=== PATIENT | male | born 1985 | race Hispanic/Latino ===

== ENCOUNTER 2018-04-08 21:01 | Emergency (ER) | payer OTHER ==
--- NOTE | 2018-04-08 22:12 | RAD REPORT ---
EXAM DESCRIPTION: CT - Head Brain Wo Cont - 04/08/2018 10:00 pm CLINICAL HISTORY: HEADACHE COMPARISON: None TECHNIQUE: All CT scans are performed using dose optimization technique as appropriate and may inclu de automated exposure control or mA/KV adjustment according to patient size. FINDINGS: No intracranial hemorrhage, hydrocephalus or extra-axial fluid collection.No areas of brai n edema or evidence of midline shift. The paranasal sinuses and mastoids are clear. The calvarium is intact. IMPRESSION: No acute intracranial abnormality.
[2018-04-08] MEDS ORDERED: METOCLOPRAMIDE 10 MG/2mL INJ ONE (22:26)
[2018-04-08] MEDS ORDERED: DEXAMETHASONE 10 MG/ML VIAL ONE (22:26)
[2018-04-08] MEDS ORDERED: NA CHLORIDE 0.9% 1,000 ML ONE (22:26)
--- NOTE | 2018-04-08 23:00 | EDPHYS ---
Physician Documentation [facility] Name: Cuco Swan Age: 32 yrs Sex: Male : 1985 Arrival Date: 04/08/2018 Time: 21:06 Bed 27 Private MD: None, None ED Physician Raf Musa HPI: 04/08 22:53 This 32 yrs old Male presents to ER via Ambulatory with complaints of rn Headache, Numbness of tongue. 22:53 The patient complains of pain to the top of head and forehead. The patient describes rn the headache as aching. Onset: The symptoms/episode began/occurred 2 week(s) ago. Severity of symptoms: At its worst the pain was mild, in the emergency department the pain is unchanged. The symptoms are alleviated by nothing. the symptoms are aggravated by nothing. The patient has not experienced similar symptoms in the past. Denies prior headache, no famhx of aneurysm/early stroke/brain tumor, no vomiting, no weight loss, no trauma, + frontal headache that goes to back of heading, aching, no neck pain/stiffness, no fever. . Historical: - Allergies: 21:41 No Known Allergies; aj1 - Home Meds: 21:41 None [Active]; aj1 - PMHx: 21:41 None; aj1 - PSHx: 21:41 hand surgery; Appendectomy; aj1 - Immunization history:: Flu vaccine is not up to date. - Social history:: Smoking status: Patient uses tobacco products, denies chronic smoking, but will smoke occasionally. - Ebola Screening: : Patient denies travel to an Ebola-affected area in the 21 days before illness onset. - Family history:: not pertinent. - Hospitalizations: : No recent hospitalization is reported. ROS: 22:53 Constitutional: Negative for fever, chills, and weight loss, Eyes: Negative for injury, rn pain, redness, and discharge, Cardiovascular: Negative for chest pain, palpitations, and edema, Respiratory: Negative for shortness of breath, cough, wheezing, and pleuritic chest pain, Abdomen/GI: Negative for abdominal pain, nausea, vomiting, diarrhea, and constipation, MS/Extremity: Negative for injury and deformity, Skin: Negative for injury, rash, and discoloration, Neuro: Negative for weakness, and seizure. Exam: 22:53 Constitutional: This is a well developed, well nourished patient who is awake, alert, rn and in no acute distress. Head/Face: Normocephalic, atraumatic. Eyes: Pupils equal round and reactive to light, extra-ocular motions intact. Lids and lashes normal. Conjunctiva and sclera are non-icteric and not injected. Cornea within normal limits. Periorbital areas with no swelling, redness, or edema. Neck: Trachea midline, no thyromegaly or masses palpated, and no cervical lymphadenopathy. Supple, full range of motion without nuchal rigidity, or vertebral point tenderness. No Meningismus. Cardiovascular: Regular rate and rhythm with a normal S1 and S2. No gallops, murmurs, or rubs. Normal PMI, no JVD. No pulse deficits. Respiratory: Lungs have equal breath sounds bilaterally, clear to auscultation and percussion. No rales, rhonchi or wheezes noted. No increased work of breathing, no retractions or nasal flaring. MS/ Extremity: Pulses equal, no cyanosis. Neurovascular intact. Full, normal range of motion. Equal circumference. Neuro: Awake and alert, GCS 15, oriented to person, place, time, and situation. Cranial nerves II-XII grossly intact. Motor strength 5/5 in all extremities. Sensory grossly intact. Cerebellar exam normal. Normal gait. Vital Signs: 21:41 BP 158 / 66; Pulse 64; Resp 18; Temp 98.2; Pulse Ox 97% on R/A; Weight 90.72 kg (R); aj1 Height 5 ft. 6 in. (167.64 cm) (R); Pain 6/10; 22:35 BP 134 / 77; Pulse 58; Resp 16; Pulse Ox 98% on R/A; lp1 21:41 Body Mass Index 32.28 (90.72 kg, 167.64 cm) aj1 [place] Coma Score: 22:53 Eye Response: spontaneous(4). Verbal Response: oriented(5). Motor Response: obeys rn commands(6). Total: 15. MDM: 21:43 Patient medically screened. rn 22:53 Differential diagnosis: hypertensive headache, migraine, tension headache, vasomotor rn headache. Data reviewed: vital signs, nurses notes, radiologic studies, CT scan, and as a result, I will discharge patient. Counseling: I had a detailed discussion with the patient and/or guardian regarding: the historical points, exam findings, and any diagnostic results supporting the discharge/admit diagnosis, radiology results, the need for outpatient follow up, to return to the emergency department if symptoms worsen or persist or if there are any questions or concerns that arise at home. Response to treatment: the patient's symptoms have resolved after treatment, the patient's condition has returned to base line, the patient is now symptom free, and as a result, I will discharge patient. Special discussion: I discussed with the patient/guardian in detail that at this point there is no indication for admission to the hospital. It is understood, however, that if the symptoms persist or worsen the patient needs to return immediately for re-evaluation. ED course: Recommended blood pressure monitoring and diary for pcp as hypertension can cause this as well. . 04/08 21:51 Order name: CT Head Brain wo Cont; Complete Time: 22:15 rn 04/08 21:51 Order name: IV Start; Complete Time: 22:34 rn Administered Medications: 22:34 Drug: Reglan 10 mg Route: IVP; Site: right antecubital; lp1 23:08 Follow up: Response: No adverse reaction lp1 22:34 Drug: NS 0.9% 1000 ml Route: IV; Rate: 1000 ml; Site: right antecubital; lp1 23:08 Follow up: IV Status: IV converted to saline lock; IV Intake: 600ml lp1 22:34 Drug: Decadron - Dexamethasone 10 mg Route: IVP; Site: right antecubital; lp1 23:08 Follow up: Response: No adverse reaction lp1 Disposition: 04/08/18 23:00 Discharged to Home. Impression: Headache. - Condition is Stable. - Discharge Instructions: General Headache Without Cause, Hypertension. - Medication Reconciliation Form, Thank You Letter, Antibiotic Education, Prescription Opioid Use form. - Follow up: Jose Eduardo Dong MD; When: As needed; Reason: Recheck today's complaints, Re-evaluation by your physician. - Problem is new. - Symptoms have improved. Signatures: Dispatcher [employer] EDMS Sisi Hart RN RN aj1 Raf Musa MD MD rn Pena, Laura, RN RN lp1 Corrections: (The following items were deleted from the chart) 23:09 23:00 04/08/2018 23:00 Discharged to Home. Impression: Headache. Condition is Stable. lp1 Forms are Medication Reconciliation Form, Thank You Letter, Antibiotic Education, Prescription Opioid Use. Follow up: Jose Eduardo Dong; When: As needed; Reason: Recheck today's complaints, Re-evaluation by your physician. Problem is new. Symptoms have improved. rn
--- NOTE | 2018-04-08 23:00 | ER ---
Nurse's Notes [facility] Name: Cuco Swan Age: 32 yrs Sex: Male : 1985 Arrival Date: 04/08/2018 Time: 21:06 Bed 27 Private MD: None, None Diagnosis: Headache Presentation: 04/08 21:37 Presenting complaint: Patient states: He has had a headache for the past 2 weeks. It aj1 started out in his forehead, but now it radiates to the back of his head as well. Today he started to have tingling on his tongue. Speech is normal, patient's gait is steady, down filler are equal bilaterally, equal eyebrow raise. Transition of care: patient was not received from another setting of care. Onset of symptoms was March 2018. Risk Assessment: Do you want to hurt yourself or someone else? Patient reports no desire to harm self or others. Initial Sepsis Screen: Does the patient meet any 2 criteria? No. Patient's initial sepsis screen is negative. Does the patient have a suspected source of infection? No. Patient's initial sepsis screen is negative. Care prior to arrival: None. 21:37 Method Of Arrival: Ambulatory aj1 21:37 Acuity: MADELINE 3 aj1 Triage Assessment: 21:41 General: Appears in no apparent distress. comfortable, Behavior is calm, cooperative, aj1 appropriate for age. Pain: Complains of pain in forehead, left parietal area and right parietal area Pain currently is 6 out of 10 on a pain scale. Pain began 2 weeks ago. Neuro: Level of Consciousness is awake, alert, obeys commands, Truck Rental Clerk are equal bilaterally Moves all extremities. Full function Gait is steady, Speech is normal, Facial symmetry appears normal, Reports headache numbness. Cardiovascular: Patient's skin is warm and dry. Respiratory: Airway is patent Respiratory effort is even, unlabored, Respiratory pattern is regular, symmetrical. 22:35 Headache History: The patient has had previous headaches and this one is more severe lp1 than previous episodes. Pain: Also complains of sensitivity to sound. Historical: - Allergies: 21:41 No Known Allergies; aj1 - Home Meds: 21:41 None [Active]; aj1 - PMHx: 21:41 None; aj1 - PSHx: 21:41 hand surgery; Appendectomy; aj1 - Immunization history:: Flu vaccine is not up to date. - Social history:: Smoking status: Patient uses tobacco products, denies chronic smoking, but will smoke occasionally. - Ebola Screening: : Patient denies travel to an Ebola-affected area in the 21 days before illness onset. - Family history:: not pertinent. - Hospitalizations: : No recent hospitalization is reported. Screenin:46 Abuse screen: Denies threats or abuse. Nutritional screening: No deficits noted. bb Tuberculosis screening: No symptoms or risk factors identified. Fall Risk None identified. Assessment: :46 Reassessment: No changes from previously documented assessment. see triage assessment. bb 23:07 Reassessment: Patient is alert, oriented x 3, equal unlabored respirations, skin lp1 warm/dry/pink. Patient states feeling better. Patient states symptoms have improved. Vital Signs: 21:41 BP 158 / 66; Pulse 64; Resp 18; Temp 98.2; Pulse Ox 97% on R/A; Weight 90.72 kg (R); aj1 Height 5 ft. 6 in. (167.64 cm) (R); Pain 6/10; 22:35 BP 134 / 77; Pulse 58; Resp 16; Pulse Ox 98% on R/A; lp1 21:41 Body Mass Index 32.28 (90.72 kg, 167.64 cm) aj1 [place] Coma Score: 22:53 Eye Response: spontaneous(4). Verbal Response: oriented(5). Motor Response: obeys rn commands(6). Total: 15. ED Course: 21:06 Patient arrived in ED. mr 21:06 None, None is Private Physician. mr 21:40 Triage completed. aj1 21:41 Arm band placed on Patient placed in an exam room. aj1 21:43 Raf Musa MD is Attending Physician. rn 21:46 Patient has correct armband on for positive identification. Bed in low position. Call bb light in reach. Side rails up X 1. Pulse ox on. NIBP on. 21:47 Marie Paul, VALERIE is Primary Nurse. bb 21:57 CT completed. Patient tolerated procedure well. Patient moved to CT. Patient moved back mw3 from CT. 21:59 CT Head Brain wo Cont In Process Unspecified. EDMS 22:34 Inserted saline lock: 20 gauge in right antecubital area, using aseptic technique. lp1 22:59 Jose Eduardo Dong MD is Referral Physician. rn 23:07 No provider procedures requiring assistance completed. IV discontinued, No lp1 redness/swelling at site. Pressure dressing applied. Administered Medications: 22:34 Drug: Reglan 10 mg Route: IVP; Site: right antecubital; lp1 23:08 Follow up: Response: No adverse reaction lp1 22:34 Drug: NS 0.9% 1000 ml Route: IV; Rate: 1000 ml; Site: right antecubital; lp1 23:08 Follow up: IV Status: IV converted to saline lock; IV Intake: 600ml lp1 22:34 Drug: Decadron - Dexamethasone 10 mg Route: IVP; Site: right antecubital; lp1 23:08 Follow up: Response: No adverse reaction lp1 Intake: 23:08 IV: 600ml; Total: 600ml. lp1 Outcome: 23:00 Discharge ordered by MD. rn 23:07 Discharged to home ambulatory, with friend. lp1 23:07 Condition: good 23:07 Discharge instructions given to patient, Instructed on discharge instructions, follow up and referral plans. Demonstrated understanding of instructions, follow-up care. 23:09 Patient left the ED. lp1 Signatures: Dispatcher [employer] EDMS Sisi Hart RN RN Lyssa Valdivia mr Marie Palu RN RN bb Nieto, Roman, MD MD rn Pena, Laura, RN RN lp1 [place] mw3
== END 2018-04-08 23:09 | disposition home or self-care (01) ==
LOC: ER 21:01
DX: R51 Headache (principal); F17.210 Nicotine dependence, cigarettes, uncomplicated
CPT/HCPCS: 70450; 96361; 96374; 96375; 99284; J1100; J2765; J7030

== ENCOUNTER 2018-08-08 12:16 | Observation (INO) | payer OTHER ==
[2018-08-08 13:04] LABS: Absolute Lymphocytes (CBC) 1.7 K/uL (0.7-4.9); Absolute Monocytes 0.5 K/uL (0.1-1.3); Absolute Neutrophil 2.9 K/uL (1.8-8.0); Basophils % 0.7 % (0-1.3); Eosinophils % 1.8 % (0-4.4); Hematocrit 42.8 % (39.6-49.0); Lymphocytes % 32.3 % (15.3-44.8); MCH 31.7 pg (27.0-35.0); MCV 91.8 fL (80-100); MPV 9.8 fL (7.6-11.3); Monocytes % 9.4 % (3.3-12.3); RBC Red Blood Cell Count 4.66 M/uL (4.33-5.43)
--- NOTE | 2018-08-08 13:17 | RAD REPORT ---
EXAM DESCRIPTION: Danita Joy (2 Views)08/08/2018 1:03 pm CLINICAL HISTORY: Chest pain COMPARISON: none FINDINGS: The lungs appear clear of acute infiltrate. The heart is normal size IMPRESSION: No acute abnormalities displayed
[2018-08-08] MEDS ORDERED: KETOROLAC 30 MG/ML INJ ONE (13:21)
[2018-08-08 13:24] LABS: BUN Blood Urea Nitrogen 18 mg/dL (7-18); Bicarbonate 26 mmol/L (21-32); Glucose Level 98 mg/dL (74-106); Potassium 3.5 mmol/L (3.5-5.1); Sodium Level 141 mmol/L (136-145); Troponin (Emerg Dept Use Only) 0.06 ng/mL (0.0-0.045)
[2018-08-08 13:59] LABS: Barbiturates NEGATIVE (NEGATIVE); Benzodiazepines NEGATIVE (NEGATIVE); Cocaine NEGATIVE (NEGATIVE); METHAMPHETAM NEGATIVE (NEGATIVE); Methadone NEGATIVE (NEGATIVE); Opiates NEGATIVE (NEGATIVE); Phencyclidine NEGATIVE (NEGATIVE); THC Cannibis NEGATIVE (NEGATIVE)
[2018-08-08 14:16] LABS: Urine Blood NEGATIVE (NEG); Urine Glucose NEGATIVE (NEG); Urine Protein NEGATIVE (NEG)
[2018-08-08] MEDS ORDERED: ONDANSETRON 4 MG/2 ML VIAL IV PRN (16:10)
[2018-08-08] MEDS ORDERED: TRAMADOL HCL 50 MG TAB PO PRN (16:10)
[2018-08-08] MEDS ORDERED: HYDRALAZINE HCL 20 MG/ML VIAL IV PRN (16:10)
[2018-08-08] MEDS ORDERED: ACETAMINOPHEN 500 MG TAB PO PRN (16:10)
--- NOTE | 2018-08-08 16:13 | ER ---
Nurse's Notes [facility] Name: Cuco Swan Age: 32 yrs Sex: Male : 1985 Arrival Date: 08/08/2018 Time: 12:18 Bed 15 Private MD: Diagnosis: Precordial pain Presentation: 08/08 12:23 Presenting complaint: Patient states: left sided chest pain and pain with inhalation sv started about 2 weeks ago. Transition of care: patient was not received from another setting of care. Onset of symptoms was July 25, 2018. Care prior to arrival: None. 12:23 Method Of Arrival: Ambulatory sv 12:23 Acuity: MADELINE 3 sv 17:38 Risk Assessment: Do you want to hurt yourself or someone else? Patient reports no jl7 desire to harm self or others. Initial Sepsis Screen: Does the patient meet any 2 criteria? No. Patient's initial sepsis screen is negative. Does the patient have a suspected source of infection? No. Patient's initial sepsis screen is negative. Triage Assessment: 12:23 General: Appears in no apparent distress. uncomfortable, Behavior is calm, cooperative, sv appropriate for age. Pain: Complains of pain in anterior aspect of left upper chest and left breast Pain currently is 2 out of 10 on a pain scale. Pain began 2 weeks ago Alleviated by nothing. Aggravated by deep breathing. Neuro: Level of Consciousness is awake, alert, obeys commands, Oriented to person, place, time, situation, Moves all extremities. Full function Gait is steady, Speech is normal. Respiratory: Reports shortness of breath pain with respiration Respiratory effort is even, unlabored, Respiratory pattern is regular, symmetrical. Historical: - Allergies: 12:24 No Known Allergies; sv - Home Meds: 12:24 None [Active]; sv - PMHx: 17:08 None; jl7 - PSHx: 12:24 hand surgery; Appendectomy; sv - Immunization history:: Flu vaccine is not up to date. - Social history:: Smoking status: Patient uses tobacco products, denies chronic smoking, but will smoke occasionally. - Ebola Screening: : No symptoms or risks identified at this time. Screenin:45 Abuse screen: Denies threats or abuse. Denies injuries from another. Nutritional jl7 screening: No deficits noted. Tuberculosis screening: No symptoms or risk factors identified. Fall Risk IV access (20 points). Total [place] Fall Scale indicates No Risk (0-24 pts). Assessment: 13:00 General: Appears in no apparent distress. uncomfortable, Behavior is calm, cooperative, jl7 appropriate for age. Pain: Complains of pain in anterior aspect of left upper chest Pain does not radiate. Pain currently is 2 out of 10 on a pain scale. at worst was 9 out of 10 on a pain scale. Quality of pain is described as sharp, Pain began suddenly, Is intermittent, Aggravated by Exhaling. Neuro: Cardiovascular: Heart tones present Patient's skin is warm and dry. Respiratory: Airway is patent Respiratory effort is even, unlabored, Respiratory pattern is regular, symmetrical, Breath sounds are clear bilaterally. GI: No signs and/or symptoms were reported involving the gastrointestinal system. : No signs and/or symptoms were reported regarding the genitourinary system. EENT: No signs and/or symptoms were reported regarding the EENT system. Derm: Skin is pink, warm \T\ dry. 14:00 Reassessment: Patient appears in no apparent distress at this time. Patient and/or jl7 family updated on plan of care and expected duration. Pain level reassessed. Patient is alert, oriented x 3, equal unlabored respirations, skin warm/dry/pink. Patient states feeling better. 15:05 Reassessment: Patient appears in no apparent distress at this time. No changes from jl7 previously documented assessment. Patient and/or family updated on plan of care and expected duration. Pain level reassessed. Patient is alert, oriented x 3, equal unlabored respirations, skin warm/dry/pink. 16:00 Reassessment: Patient appears in no apparent distress at this time. Patient and/or jl7 family updated on plan of care and expected duration. Pain level reassessed. Patient is alert, oriented x 3, equal unlabored respirations, skin warm/dry/pink. Patient denies pain at this time. 17:00 Reassessment: Patient appears in no apparent distress at this time. No changes from jl7 previously documented assessment. Patient and/or family updated on plan of care and expected duration. Pain level reassessed. Patient is alert, oriented x 3, equal unlabored respirations, skin warm/dry/pink. Vital Signs: 12:24 BP 124 / 79; Pulse 66; Resp 18; Temp 97; Pulse Ox 99% ; Weight 90.72 kg; Height 5 ft. 6 sv in. (167.64 cm); Pain 2/10; 12:45 BP 118 / 79; Pulse 58; Resp 16 S; Pulse Ox 98% on R/A; Pain 2/10; jl7 13:30 BP 125 / 75; Pulse 59; Resp 16 S; Pulse Ox 99% on R/A; jl7 14:00 BP 114 / 76; Pulse 55; Resp 16 S; Pulse Ox 99% on R/A; jl7 15:06 BP 109 / 79; Pulse 53; Resp 16; Pulse Ox 99% on R/A; Pain 0/10; jl7 15:45 BP 113 / 67; Pulse 50; Resp 16 S; Pulse Ox 98% on R/A; jl7 16:30 BP 124 / 81; Pulse 60; Resp 16 S; Pulse Ox 99% on R/A; jl7 17:08 BP 126 / 86; Pulse 59; Resp 16 S; Pulse Ox 98% on R/A; jl7 12:24 Body Mass Index 32.28 (90.72 kg, 167.64 cm) sv ED Course: 12:18 Patient arrived in ED. tw3 12:24 Triage completed. sv 12:25 Arm band placed on. sv 12:30 Edwar Jalloh MD is Attending Physician. gs 12:32 Espinoza De León, VALERIE is Primary Nurse. jl7 12:45 Patient maintains SpO2 saturation greater than 95% on room air. jl7 12:53 Patient has correct armband on for positive identification. Placed in gown. Bed in low mh5 position. Call light in reach. Warm blanket given. vehicle monitor technician on. Pulse ox on. NIBP on. 12:53 Initial lab(s) drawn, by md, sent to lab. Inserted saline lock: 20 gauge forearm, using [facility] aseptic technique. Blood collected. 12:54 Troponin (emerg Dept Use Only) Sent. 5 12:54 Basic Metabolic Panel Sent. [facility] 12:54 CBC with Diff Sent. 5 12:55 Patient moved to radiology via wheelchair. jr1 13:03 X-ray completed. Patient tolerated procedure well. Patient moved back from radiology. jr1 13:05 XRAY Chest Pa And Lat (2 Views) In Process Unspecified. EDMS 15:05 Troponin (emerg Dept Use Only) Sent. [facility] 15:06 Urine Dipstick--Ancillary (enter results) Sent. [facility] 15:06 Repeat lab(s) drawn. sent to lab. [facility] 16:11 Dario Quintanilla DO is Hospitalizing Provider. 17:10 No provider procedures requiring assistance completed. Patient admitted, IV remains in jl7 place. intact, No redness/swelling at site. Administered Medications: 13:23 Drug: TORadol 30 mg Route: IVP; Site: right forearm; jl7 14:00 Follow up: Response: No adverse reaction; Pain is decreased jl Outcome: 16:12 Decision to Hospitalize by Provider. gs 17:39 Admitted to Tele accompanied by tech, via wheelchair, room 413, with chart, Report jl7 called to VALERIE Graham 17:39 Condition: stable 17:39 Discharge instructions given to patient, Instructed on the need for admit, Demonstrated understanding of instructions. 17:44 Patient left the ED. 7 Signatures: Dispatcher [employer] Maria Luz Hayes RN RN Hayley Frey 1 Lyssa Dey Espinoza Byrnes RN RN jl7 Carmine, Chloe 3 Edwar Jalloh MD MD Corrections: (The following items were deleted from the chart) 17:07 16:00 Reassessment: Patient appears in no apparent distress at this time. No changes jl7 from previously documented assessment. Patient and/or family updated on plan of care and expected duration. Pain level reassessed. Patient is alert, oriented x 3, equal unlabored respirations, skin warm/dry/pink. jl
--- NOTE | 2018-08-08 16:14 | EDPHYS ---
Physician Documentation [facility] Name: Cuco Swan Age: 32 yrs Sex: Male : 1985 Arrival Date: 08/08/2018 Time: 12:18 Bed 15 Private MD: ED Physician Edwar Jlaloh HPI: 08/08 16:45 This 32 yrs old Male presents to ER via Ambulatory with complaints of Chest gs Pain. 16:45 The patient or guardian reports chest pain that is located primarily in the substernal gs area. Associated signs and symptoms: Pertinent negatives: diaphoresis. The chest pain is described as a heaviness. Duration: The patient or guardian reports multiple episodes, that have now resolved. Severity of pain: At its worst the pain was moderate in the emergency department the pain has resolved. The patient has experienced similar episodes in the past, a few times. Historical: - Allergies: 12:24 No Known Allergies; sv - Home Meds: 12:24 None [Active]; sv - PMHx: 17:08 None; jl7 - PSHx: 12:24 hand surgery; Appendectomy; sv - Immunization history:: Flu vaccine is not up to date. - Social history:: Smoking status: Patient uses tobacco products, denies chronic smoking, but will smoke occasionally. - Ebola Screening: : No symptoms or risks identified at this time. ROS: 16:45 All other systems are negative. gs Exam: 16:45 Head/Face: Normocephalic, atraumatic. Eyes: Pupils equal round and reactive to light, gs extra-ocular motions intact. Lids and lashes normal. Conjunctiva and sclera are non-icteric and not injected. Cornea within normal limits. Periorbital areas with no swelling, redness, or edema. ENT: Nares patent. No nasal discharge, no septal abnormalities noted. Tympanic membranes are normal and external auditory canals are clear. Oropharynx with no redness, swelling, or masses, exudates, or evidence of obstruction, uvula midline. Mucous membranes moist. Neck: Trachea midline, no thyromegaly or masses palpated, and no cervical lymphadenopathy. Supple, full range of motion without nuchal rigidity, or vertebral point tenderness. No Meningismus. Chest/axilla: Normal chest wall appearance and motion. Nontender with no deformity. No lesions are appreciated. Cardiovascular: Regular rate and rhythm with a normal S1 and S2. No gallops, murmurs, or rubs. Normal PMI, no JVD. No pulse deficits. Respiratory: Lungs have equal breath sounds bilaterally, clear to auscultation and percussion. No rales, rhonchi or wheezes noted. No increased work of breathing, no retractions or nasal flaring. Abdomen/GI: Soft, non-tender, with normal bowel sounds. No distension or tympany. No guarding or rebound. No evidence of tenderness throughout. Back: No spinal tenderness. No costovertebral tenderness. Full range of motion. Skin: Warm, dry with normal turgor. Normal color with no rashes, no lesions, and no evidence of cellulitis. MS/ Extremity: Pulses equal, no cyanosis. Neurovascular intact. Full, normal range of motion. Neuro: Awake and alert, GCS 15, oriented to person, place, time, and situation. Cranial nerves II-XII grossly intact. Motor strength 5/5 in all extremities. Sensory grossly intact. Cerebellar exam normal. Normal gait. 16:45 Constitutional: The patient appears alert, awake. 16:45 ECG was reviewed by the Attending Physician. Vital Signs: 12:24 BP 124 / 79; Pulse 66; Resp 18; Temp 97; Pulse Ox 99% ; Weight 90.72 kg; Height 5 ft. 6 sv in. (167.64 cm); Pain 2/10; 12:45 BP 118 / 79; Pulse 58; Resp 16 S; Pulse Ox 98% on R/A; Pain 2/10; jl7 13:30 BP 125 / 75; Pulse 59; Resp 16 S; Pulse Ox 99% on R/A; jl7 14:00 BP 114 / 76; Pulse 55; Resp 16 S; Pulse Ox 99% on R/A; jl7 15:06 BP 109 / 79; Pulse 53; Resp 16; Pulse Ox 99% on R/A; Pain 0/10; jl7 15:45 BP 113 / 67; Pulse 50; Resp 16 S; Pulse Ox 98% on R/A; jl7 16:30 BP 124 / 81; Pulse 60; Resp 16 S; Pulse Ox 99% on R/A; jl7 17:08 BP 126 / 86; Pulse 59; Resp 16 S; Pulse Ox 98% on R/A; jl7 12:24 Body Mass Index 32.28 (90.72 kg, 167.64 cm) sv MDM: 12:37 Patient medically screened. 16:45 Differential diagnosis: acute myocardial infarction, chest wall pain, stable angina, gs unstable angina. Data reviewed: vital signs, nurses notes. Counseling: I had a detailed discussion with the patient and/or guardian regarding: the historical points, exam findings, and any diagnostic results supporting the discharge/admit diagnosis, the need for further work-up and treatment in the hospital. 08/08 12:38 Order name: Basic Metabolic Panel; Complete Time: 13:27 08/08 12:38 Order name: CBC with Diff; Complete Time: 13:22 08/08 12:38 Order name: Troponin (emerg Dept Use Only); Complete Time: 13:27 08/08 13:28 Order name: Urine Drug Screen; Complete Time: 14:19 08/08 13:28 Order name: CPK; Complete Time: 14:19 08/08 13:57 Order name: Urine Dipstick--Ancillary (enter results) 08/08 14:19 Order name: Troponin (emerg Dept Use Only); Complete Time: 15:52 08/08 16:17 Order name: T4 Free EDIL 08/08 16:17 Order name: Thyroid Stimulating Hormone EDIL 08/08 16:17 Order name: Urinalysis EDIL 08/08 16:17 Order name: Basic Metabolic Panel EDIL 08/08 16:17 Order name: Basic Metabolic Panel EDIL 08/08 16:17 Order name: CBC with Automated Diff EDIL 08/08 16:18 Order name: CBC with Automated Diff EDIL 08/08 12:38 Order name: XRAY Chest Pa And Lat (2 Views); Complete Time: 13:22 08/08 16:17 Order name: Echo with Doppler EDIL 08/08 16:18 Order name: CKMB Creatine Kinase MB EDIL 08/08 16:18 Order name: CKMB Creatine Kinase MB EDMS 08/08 16:18 Order name: CKMB Creatine Kinase MB EDMS 08/08 16:18 Order name: Creatine Phosphokinase EDIL 08/08 16:18 Order name: Creatine Phosphokinase EDIL 08/08 16:18 Order name: Creatine Phosphokinase EDIL 08/08 16:18 Order name: Lipid Profile EDIL 08/08 16:18 Order name: Lipid Profile EDIL 08/08 16:18 Order name: Magnesium EDIL 08/08 16:18 Order name: Magnesium EDIL 08/08 16:18 Order name: Troponin I EDIL 08/08 16:18 Order name: Troponin I EDIL 08/08 16:18 Order name: Troponin I EDIL 08/08 12:29 Order name: EKG; Complete Time: 12:30 sv 08/08 12:29 Order name: EKG - Nurse/Tech; Complete Time: 13:10 sv 08/08 12:38 Order name: Cardiac monitoring; Complete Time: 12:54 gs 08/08 12:38 Order name: IV Saline Lock; Complete Time: 12:54 gs 08/08 12:38 Order name: Labs collected and sent; Complete Time: 12:54 gs 08/08 12:38 Order name: O2 Per Protocol; Complete Time: 13:10 gs 08/08 12:38 Order name: O2 Sat Monitoring; Complete Time: 13:10 gs 08/08 16:17 Order name: CONS Physician Consult EDIL 08/08 16:17 Order name: Heart Healthy EDIL 08/08 16:17 Order name: NPO EDIL EC:45 Rate is 57 beats/min. Rhythm is regular. GA interval is normal. QRS interval is gs prolonged. T waves are Normal. No ST changes noted. Clinical impression: Abnormal EKG without significant change. Interpreted by me. Administered Medications: 13:23 Drug: TORadol 30 mg Route: IVP; Site: right forearm; jl7 14:00 Follow up: Response: No adverse reaction; Pain is decreased jl7 Disposition: 08/08/18 16:12 Hospitalization ordered by Dario Quintanilla for Observation. Preliminary diagnosis is Precordial pain. - Bed requested for Telemetry/MedSurg (observation). - Status is Observation. jl7 - Condition is Stable. - Problem is new. - Symptoms have improved. UTI on Admission? No Signatures: Dispatcher [employer] [facility] Maria Luz Macdonald, RN RN Espinoza Felipe RN RN jl7 Edwar Jalloh MD MD gs Botello, Elizabeth eb Corrections: (The following items were deleted from the chart) 16:53 16:12 Hospitalization Ordered by Dario Quintanilla DO for Observation. Preliminary eb diagnosis is Precordial pain. Bed requested for Telemetry/MedSurg (observation). Status is Observation. Condition is Stable. Problem is new. Symptoms have improved. UTI on Admission? No. gs 17:44 16:53 08/08/2018 16:12 Hospitalization Ordered by Dario Quintanilla DO for Observation. jl7 Preliminary diagnosis is Precordial pain. Bed requested for Telemetry/MedSurg (observation). Status is Observation. Condition is Stable. Problem is new. Symptoms have improved. UTI on Admission? No. eb
[2018-08-08] MEDS ORDERED: NITROGLYCERIN 0.4 MG/TAB SL PRN (16:20)
--- NOTE | 2018-08-08 16:21 | P.HP ---
Certification for Inpatient Patient admitted to: Observation With expected LOS: <2 Midnights Patient will require the following post-hospital care: None Practitioner: I am a practitioner with admitting privileges, knowledge of patient current condition, hospital course, and medical plan of care. Services: Services provided to patient in accordance with Admission requirements found in Title 42 Section 412.3 of the Code of Federal Regulations Patient History Date of Service: 08/08/18 Primary Care Provider: None Reason for admission: Chest pain History of Present Illness: 32 yo HM presented to the ER with chest pain. He has no prior medical issues except that he smokes tobacco and drinks alcohol. He reports chest pain for the past 2 weeks. It would come and go. It is a random type of pain. It is mainly to the substernal region. No nausea, vomiting, palpitations, headaches or dizziness. He tried to make an appt with a local physician but he was not successful. He came to the ER for further evaluation. In the ER he was found to have mild elevation to the Troponin of 0.06. Repeat was 0.05. Otherwise lab was unremarkable. EKG showed RBBB. Chest x-ray was unremarkable. UDS negative. Vitals stable. He was admitted for further evaluation. When I saw the patient he was stable without any pain. Allergies No Known Allergies Allergy (Unverified 04/08/18 23:12) Home medications list reviewed: Yes - Past Medical/Surgical History Diabetic: No -: Alcohol use -: Tobacco abuse -: Right hand surgery -: Appendectomy Psychosocial/ Personal History: He is single, He has no children. 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 - Family History Father -: Diabetes - Social History Smoking Status: Light Tobacco smoker (1-9 cigarettes/day) Counseled patient to stop smoking for: less than 10 minutes Smoking therapy provided: Yes Patient receptive to therapy: Yes Alcohol use: Yes CD- Drugs: No Caffeine use: Yes Place of Residence: Home Review of Systems General: As per HPI Eyes: Unremarkable ENT: Unremarkable Respiratory: Unremarkable Cardiovascular: Chest Pain, As per HPI Gastrointestinal: Unremarkable Genitourinary: Unremarkable Musculoskeletal: Unremarkable Integumentary: Unremarkable Neurological: Unremarkable Lymphatics: Unremarkable Physical Examination - Physical Exam General: Alert, In no apparent distress, Oriented x3, Cooperative HEENT: Atraumatic, Normocephalic, PERRLA, Mucous membr. moist/pink Neck: Supple, No Thyromegaly Respiratory: Clear to auscultation bilaterally, Normal air movement Cardiovascular: Normal pulses, Regular rate/rhythm Gastrointestinal: Normal bowel sounds, Soft and benign, Non-distended, No ascites, No tenderness, No masses, No rebound, No guarding Musculoskeletal: No contractures, No erythema, No tenderness, No warmth Integumentary: No tenderness/swelling, No erythema, No warmth, No cyanosis Neurological: Normal speech, Normal strength at 5/5 x4 extr, Normal tone, Normal affect Lymphatics: No axilla or inguinal lymphadenopathy - Studies Laboratory Data (last 24 hrs) 08/08/18 12:45: WBC 5.3, Hgb 14.8, Hct 42.8, Plt Count 204 08/08/18 12:45: Sodium 141, Potassium 3.5, BUN 18, Creatinine 0.90, Glucose 98 Assessment and Plan - Plan Impression: Chest pain, atypical with slight elevation of Troponin Tobacco abuse Alcohol use Plan: Chest pain, atypical with slight elevation of Troponin: Repeat Trop was improved. Will monitor cardiac enzymes and telemetry. Will provide medication for HTN if needed. Will start ASA, Lipitor and provide Nitro if needed. Will provide PPI. Will obtain ECHO and Exercise stress test for the am to further assess his condition. Cardiology consulted. Await recommendations. I will turn the service over to Dr. Gallo who will take over the patient. Tobacco abuse: Tobacco cessation addressed. Alcohol use: Alcohol cessation addressed. UDS was negative. Discharge Plan: Home Plan to discharge in: 24 Hours - Advance Directives Does patient have a Living Will: No Does patient have a Durable POA for Healthcare: No - Code Status/Comfort Care Code Status Assessed: Yes (Full code) Time Spent Managing Pts Care (In Minutes): 55
[2018-08-08 16:49] LABS: Thyroid Stimulating Hormone 1.75 uIU/mL (0.360-3.740)
[2018-08-08] MEDS ORDERED: POTASSIUM CL SA 10 MEQ TAB PO ONE (17:43)
[2018-08-08] MEDS: ENOXAPARIN 40 MG/0.4 ML SQ SCH (18:13)
[2018-08-08] MEDS ORDERED: ATORVASTATIN 40 MG TAB PO SCH (21:00)
--- NOTE | 2018-08-08 22:41 | EKG ---
Test Date: 2018-08-08 Test Time: 12:51:12 Lubrication Technician: ARACELI MEASUREMENT RESULTS: Intervals: Rate: 57 WY: 184 QRSD: 104 QT: 416 QTc: 404 Cyclone: P: 33 WY: 184 QRS: 69 T: 45 INTERPRETIVE STATEMENTS: Sinus bradycardia Incomplete right bundle branch block Borderline ECG No previous ECG available for comparison Electronically Signed On 08-08-18 22:40:21 FINANCIAL PROFESSIONAL by Jean Tran
[2018-08-08 22:52] LABS: CKMB Creatine Kinase MB < 1.0 ng/mL (0.3-3.6); Creatine Phosphokinase 223 U/L (39-308); Troponin I 0.05 ng/mL (0.0-0.045)
[2018-08-09 06:58] LABS: Absolute Monocytes 0.6 K/uL (0.1-1.3); Absolute Neutrophil 2.9 K/uL (1.8-8.0); Basophils % 0.7 % (0-1.3); Eosinophils % 2.3 % (0-4.4); Hematocrit 39.7 % (39.6-49.0); Lymphocytes % 35.5 % (15.3-44.8); MCH 31.8 pg (27.0-35.0); MPV 9.8 fL (7.6-11.3); Monocytes % 10.7 % (3.3-12.3); RBC Red Blood Cell Count 4.32 M/uL (4.33-5.43)
[2018-08-09 07:28] LABS: BUN Blood Urea Nitrogen 22 mg/dL (7-18); Bicarbonate 24 mmol/L (21-32); Glucose Level 89 mg/dL (74-106); HDL Cholesterol 38 mg/dL (40-60); LDL Cholesterol, Calculated 107 (<130); Magnesium 2.5 mg/dL (1.8-2.4); Potassium 4.2 mmol/L (3.5-5.1); Sodium Level 142 mmol/L (136-145)
[2018-08-09] MEDS ORDERED: PANTOPRAZOLE 40MG TABLET PO SCH (07:30)
[2018-08-09 07:35] LABS: CKMB Creatine Kinase MB < 1.0 ng/mL (0.3-3.6); Creatine Phosphokinase 197 U/L (39-308); Troponin I 0.05 ng/mL (0.0-0.045)
[2018-08-09] MEDS ORDERED: ASPIRIN EC 81 MG TAB PO SCH (09:00)
--- NOTE | 2018-08-09 12:54 | CON ---
A 32-year-old man. Attending Physician: Dario Quintanilla DO Chief Complaint: Chest pain. History Of Present Illness: Mr. Swan has had this chest pain for a month. It is on the left side of the sternum, well localized, not there all the time, although if he thinks about it, he can feel chrystal ething, but there are moments of time when it is intense for 5 seconds then goes away. It does not s eem to be exertion or body position or deep breath or anything he can name that makes it happen. He has had several spells a day for the last month. Since he has been in the hospital, troponins are al l 0.05, not going up and down. His electrocardiogram is significant for sinus bradycardia, heart rat e 57, incomplete right bundle, should be a very interpretable EKG for doing a stress test. Physical Examination: Vital Signs: 5 feet 6 inches, 200 pounds. HEENT: Unremarkable. Lungs: Clear. Heart: Within normal limits. Extremities: Normal pulses. Social History: He uses about 5 cigarettes a month. He has been instructed on tobacco cessation. Laboratory Data: Normal renal function. All normal blood sugars. Troponin levels are all 0.05. TS H is normal. Impression: This is noncardiac chest pain. I do not really know why the troponins are like they are , but he already has a stress test and echocardiogram ordered. If those are okay, he can be discharg ed home. HENRY/JULES Voice ID: [id number] Report ID: [id number]
--- NOTE | 2018-08-09 13:24 | ECHO ---
HEIGHT: 5 ft 6 in WEIGHT: 200 lb 0 oz DATE OF STUDY: 08/09/[address]: Dario Quintanilla DO 2-DIMENSIONAL: YES M.MODE: YES DOPPLER: YES COLOR FLOW: YES TDS: PORTABLE: DEFINITY: BUBBLE STUDY: DIAGNOSIS: CHEST PAIN CARDIAC HISTORY: CATHERIZATION: NO SURGERY: NO PROSTHETIC VALVE: NO PACEMAKER: NO MEASUREMENTS (cm) DIASTOLIC (NORMALS) SYSTOLIC (NORMALS) IVSd 1.1 (0.6-1.2) LA Diam 3.8 (1.9-4.0) LVEF 52% LVIDd 4.5 (3.5-5.7) LVIDs 3.3 (2.0-3.5) %FS 26% LVPWd 0.9 (0.6-1.2) Ao Diam 2.8 (2.0-3.7) 2 DIMENSIONAL ASSESSMENT: RIGHT ATRIUM: NORMAL LEFT ATRIUM: NORMAL RIGHT VENTRICLE: NORMAL LEFT VENTRICLE: NORMAL TRICUSPID VALVE: NORMAL MITRAL VALVE: NORMAL PULMONIC VALVE: NORMAL AORTIC VALVE: NORMAL PERICARDIAL EFFUSION: NONE AORTIC ROOT: NORMAL LEFT VENTRICULAR WALL MOTION: NORMAL DOPPLER/COLOR FLOW: TRACE TRICUSPID REGURGITATION. NORMAL RIGHT VENTRICULAR SYSTOLIC PRESSURE. COMMENTS: NORMAL 2-DIMENSIONAL ECHOCARDIOGRAM. TRACE TRICUSPID REGURGITATION. TECHNOLOGIST: IWONA ESCALANTE
[2018-08-09] MEDS: ENOXAPARIN 40 MG/0.4 ML SQ SCH (15:09)
--- NOTE | 2018-08-09 15:39 | TREADMILL ---
70% H.R.: 132 85% H.R.: 161 90% H.R.: 170 100% H.R.: 189 DX: CHEST PAIN Date of Study: 08/09/2018 Ht: 5 6 Wt: 200 lb 0 oz Consulting Physician: DR. VALVERDE MEDICATIONS: TYLENOL, ASPIRIN, LIPITOR, LOVENOX, APRESOLINE, MITROSTAT, PROTONIX. HISTORY: 32 YEAR OLD MALE WITH CHEST PAINS MEDICAL HISTORY: NONE PHYSICIAL EXAMINATION: RESTING B.P.: 118/79 RESTING H.R.: 53 RESTING EKG: NORMAL PROTOCOL: BROOKS ROUTINE EXERCISE TIME: 10:00 MAXIMUM HEART RATE: 160 84 % OF PREDICTED B.P. AT PEAK STRESS: 162/74 H.R. AT 1 MINUTE POST EXERCISE: 141 IMPRESSION: STRESS DUE TO TARGET HEART RATE REACHED AND FATIGUE PER PROTOCOL. NO SUPRAVENTRICULAR TACHYCARDIA, NO VENTRICULAR TACHYCARDIA, DENIED CHEST PAIN. NORMAL STRESS TEST- NO ST DEPRESSION. NEGATIVE FOR ISCHEMIA.
--- NOTE | 2018-08-09 16:48 | P.SSS ---
Patient History Date of Service: 08/09/18 Primary Care Provider: None Reason for admission: Chest pain History of Present Illness: 32 yo HM presented to the ER with chest pain. He has no prior medical issues except that he smokes tobacco and drinks alcohol. He reports chest pain for the past 2 weeks. It would come and go. It is a random type of pain. It is mainly to the substernal region. No nausea, vomiting, palpitations, headaches or dizziness. He tried to make an appt with a local physician but he was not successful. He came to the ER for further evaluation. In the ER he was found to have mild elevation to the Troponin of 0.06. Repeat was 0.05. Otherwise lab was unremarkable. EKG showed RBBB. Chest x-ray was unremarkable. UDS negative. Vitals stable. He was admitted for further evaluation. When I saw the patient he was stable without any pain. Allergies No Known Allergies Allergy (Unverified 04/08/18 23:12) Home Medications: NK [No Home Meds] 08/08/18 - Past Medical/Surgical History Has patient received pneumonia vaccine in the past: No Diabetic: No -: Alcohol use -: Tobacco abuse -: Right hand surgery -: Appendectomy Psychosocial/ Personal History: He is single, He has no children. 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 - Family History Father History Unknown: Yes -: Diabetes Mother -: Heart disease, Other (see notes) Notes: hyperlipidemia - Social History Smoking Status: Smoker current status UNK Alcohol use: Yes CD- Drugs: No Caffeine use: Yes Place of Residence: Home Review of Systems 10-point ROS is otherwise unremarkable Physical Examination - Vital Signs Temperature: 97.1 F Blood Pressure: 102/62 Pulse: 62 Respirations: 18 Pulse Ox (%): 99 - Physical Exam General: Alert, In no apparent distress HEENT: Atraumatic, PERRLA, Mucous membr. moist/pink, EOMI, Sclerae nonicteric Neck: Supple, 2+ carotid pulse no bruit, No LAD, Without JVD or thyroid abnormality Respiratory: Clear to auscultation bilaterally, Normal air movement Cardiovascular: Regular rate/rhythm, Normal S1 S2 Gastrointestinal: Normal bowel sounds, No tenderness Musculoskeletal: No tenderness Integumentary: No rashes Neurological: Normal gait, Normal speech, Normal strength at 5/5 x4 extr, Normal tone, Normal affect Lymphatics: No axilla or inguinal lymphadenopathy Treatment Summary: Overall during the hospital stay patient remained stable patient was admitted to the hospital for chest pain rule out ACS. Patient had echocardiogram and stress test done here in the hospital which were both negative for acute abnormality. Patient had cardiology consulted here in the hospital who recommended the patient can now be discharged home safely due to negative stress and echocardiogram and follow up with primary care provider. Patient demonstrated understanding and thus was discharged home under stable condition - Disposition Condition: GOOD Patient Discharge Instructions: Please f.u with PCP in 1 to 2 days post discharge Diet: Regular Activity: Ad sussy
== END 2018-08-09 17:28 | disposition home or self-care (01) ==
LOC: ER 12:16 → ERHOLD 16:31 → 4TH 17:37
PROVIDERS: ADMIT Family Medicine; ATTEND Family Medicine
DX: R07.89 Other chest pain (principal); F17.210 Nicotine dependence, cigarettes, uncomplicated; Z72.89 Other problems related to lifestyle
CPT/HCPCS: 36415; 71046; 80048; 80061; 80307; 81003; 82550; 82553; 83735; 84439; 84443; 84484; 85025; 93005; 93017; 93306; 96374; 99285; G0378; J1650

== ENCOUNTER 2021-05-11 12:21 | Emergency (ER) | payer OTHER, SELFPAY ==
--- OUTSIDE RECORDS SUMMARY | 2021-05-11 12:23 | XMS REPORT | Continuity of Care Document ---
:1985 Author Organization [facility] t Address [facility] Al[address] [place] [id number] Care Team Providers Name Role Phone Unavailable Unavailable Unavailable Problems This patient has no known problems. Allergies, Adverse Reactions, Alerts This patient has no known allergies or adverse reactions. Medications This patient has no known medications. Procedures This patient has no known procedures. Results This patient has no known results.
[2021-05-11 16:33] LABS: SARS-COV-2 RT PCR POSITIVE (NEGATIVE)
--- NOTE | 2021-05-11 16:33 | ER ---
Nurse's Notes [facility] Name: Cuco Swan Age: 35 yrs Sex: Male : 1985 Arrival Date: 05/11/2021 Time: 12:24 Bed DX1 Private MD: Diagnosis: Coronavirus infection, unspecified Presentation: 05/11 13:11 Chief complaint: Patient states: Tuesday started with runny nose, congestion, cough, ll1 chest pressure, fever. Wants to be checked for covid. Coronavirus screen: Vaccine status: Patient reports being unvaccinated. Client denies travel out of the [place] in the last 14 days. congestion, cough unrelated to allergies, fatigue, fever, headache, runny nose, loss of taste or smell. Ebola Screen: Patient denies travel to an Ebola-affected area in the 21 days before illness onset. Initial Sepsis Screen: Does the patient meet any 2 criteria? No. Patient's initial sepsis screen is negative. Does the patient have a suspected source of infection? Yes: Productive cough/pneumonia. Risk Assessment: Do you want to hurt yourself or someone else? Patient reports no desire to harm self or others. Onset of symptoms was May 06, 2021. 13:11 Method Of Arrival: Ambulatory ll1 13:11 Acuity: MADELINE 4 ll1 Historical: - Allergies: 13:14 No Known Allergies; ll1 - PMHx: 13:14 None; ll1 - PSHx: 13:14 broken bone repair; Appendectomy; ll1 - Immunization history:: Client reports having NOT received the Covid vaccine. Flu vaccine status is unknown. - Social history:: Smoking status: Patient denies any tobacco usage or history of. Screenin:36 Abuse screen: Denies threats or abuse. Denies injuries from another. Nutritional ss screening: No deficits noted. Tuberculosis screening: Never had TB. Fall Risk None identified. Assessment: 16:36 General: Appears in no apparent distress. comfortable, Behavior is calm, cooperative. ss Neuro: Level of Consciousness is awake, alert. Respiratory: Airway is patent Respiratory effort is even, unlabored, Respiratory pattern is regular, symmetrical. GI: No signs and/or symptoms were reported involving the gastrointestinal system. Derm: Skin is intact, is healthy with good turgor, Skin is dry, Skin is pink, warm \T\ dry. normal. Vital Signs: 13:11 BP 143 / 98; Pulse 77; Resp 16; Temp 97.5; Pulse Ox 100% ; Weight 88.45 kg; Height 5 ll1 ft. 7 in. (170.18 cm); Pain 5/10; 16:36 Resp 16; ss 13:11 Body Mass Index 30.54 (88.45 kg, 170.18 cm) ll1 ED Course: 12:24 Patient arrived in ED. as 13:14 Triage completed. ll1 13:14 Arm band placed on. ll1 13:15 [facility]C [facility]. kb 13:15 Landen Hayden MD is Attending Physician. kb 16:36 Jennifer Fernandez, VALERIE is Primary Nurse. ss 16:36 Patient has correct armband on for positive identification. Bed in low position. ss 16:36 No provider procedures requiring assistance completed. Patient did not have IV access ss during this emergency room visit. Administered Medications: No medications were administered Outcome: 16:33 Discharge ordered by MD. kb 16:36 Discharged to home ambulatory. ss 16:36 Condition: good 16:36 Discharge instructions given to patient, Instructed on discharge instructions, follow up and referral plans. Demonstrated understanding of instructions, follow-up care. 16:37 Patient left the ED. ss Signatures: Carol Murillo FNP-C FNP-Perla De Jesus as Jennifer Fernandez, RN RN Maki Gongora RN RN ll1
--- NOTE | 2021-05-11 16:33 | EDPHYS ---
Physician Documentation [facility] Name: Cuco Swan Age: 35 yrs Sex: Male : 1985 Arrival Date: 05/11/2021 Time: 12:24 Bed DX1 Private MD: ED Physician Landen Hayden HPI: 05/11 14:13 This 35 yrs old Male presents to ER via Ambulatory with complaints of r/o kb covid. 14:13 The patient or guardian reports cough, that is intermittent, described as mild. Onset: kb The symptoms/episode began/occurred 6 day(s) ago. Severity of symptoms: At their worst the symptoms were moderate, in the emergency department the symptoms are unchanged. Modifying factors: The symptoms are alleviated by nothing, the symptoms are aggravated by nothing. Associated signs and symptoms: Pertinent positives: fever, rhinorrhea, Pertinent negatives: chest pain, diarrhea, ear ache, nausea, sore throat, vomiting. The patient has not experienced similar symptoms in the past. The patient has not recently seen a physician. Pt reports cough, congestion and fever for 6 days. . Historical: - Allergies: 13:14 No Known Allergies; ll1 - PMHx: 13:14 None; ll1 - PSHx: 13:14 broken bone repair; Appendectomy; ll1 - Immunization history:: Client reports having NOT received the Covid vaccine. Flu vaccine status is unknown. - Social history:: Smoking status: Patient denies any tobacco usage or history of. ROS: 14:13 Abdomen/GI: Negative for abdominal pain, nausea, vomiting, diarrhea, and constipation. kb 14:13 Constitutional: Positive for fever, malaise. 14:13 ENT: Positive for rhinorrhea, sinus congestion. 14:13 Respiratory: Positive for cough, Negative for dyspnea on exertion, hemoptysis, orthopnea, pleurisy, shortness of breath, sputum production, wheezing. 14:13 All other systems are negative. Exam: 14:14 Constitutional: This is a well developed, well nourished patient who is awake, alert, kb and in no acute distress. Head/Face: Normocephalic, atraumatic. ENT: Moist Mucous membranes Respiratory: Respirations even and unlabored. No increased work of breathing, no retractions or nasal flaring. Skin: Warm, dry with normal turgor. Normal color. MS/ Extremity: Pulses equal, no cyanosis. Neurovascular intact. Full, normal range of motion. Neuro: Awake and alert, GCS 15, oriented to person, place, time, and situation. Moves all extremities. Normal gait. Psych: Awake, alert, with orientation to person, place and time. Behavior, mood, and affect are within normal limits. Vital Signs: 13:11 BP 143 / 98; Pulse 77; Resp 16; Temp 97.5; Pulse Ox 100% ; Weight 88.45 kg; Height 5 ll1 ft. 7 in. (170.18 cm); Pain 5/10; 16:36 Resp 16; ss 13:11 Body Mass Index 30.54 (88.45 kg, 170.18 cm) ll1 MDM: 13:15 Patient medically screened. kb 14:14 Data reviewed: vital signs, nurses notes. Data interpreted: Pulse oximetry: on room air kb is 100 %. Interpretation: normal. Counseling: I had a detailed discussion with the patient and/or guardian regarding: the historical points, exam findings, and any diagnostic results supporting the discharge/admit diagnosis, lab results, the need for outpatient follow up, a family practitioner, to return to the emergency department if symptoms worsen or persist or if there are any questions or concerns that arise at home. 05/11 13:16 Order name: COVID-19 : Document "Date of Symptom Onset" if Symptomatic. kb 05/11 13:16 Order name: Flu kb 05/11 16:33 Order name: COVID-19/FLU A+B; Complete Time: 16:33 EDMS Administered Medications: No medications were administered Disposition: 05/12 08:43 Co-signature as Attending Physician, Landen Hayden MD I agree with the assessment and tamera plan of care. Disposition Summary: 05/11/21 16:33 Discharge Ordered Location: Home kb Condition: Stable kb Diagnosis - Coronavirus infection, unspecified kb Followup: kb - With: Emergency Department - When: As needed - Reason: Worsening of condition Followup: kb - With: Private Physician - When: 2 - 3 days - Reason: Recheck today's complaints, Continuance of care, Re-evaluation by your physician Discharge Instructions: - Discharge Summary Sheet kb - Viral Respiratory Infection, [id number] kb - COVID-19 kb - COVID-19 Frequently Asked Questions kb - 10 Things You Can Do to Manage Your COVID-19 Symptoms at Home - [facility] [place] kb Forms: - Medication Reconciliation Form kb - Thank You Letter kb - Antibiotic Education kb - Prescription Opioid Use kb Signatures: Dispatcher [employer] EDMS Carol Murillo, ABE MCKENZIE-Landen Fan MD MD cha Lewis, Lynsay, RN RN ll1 Corrections: (The following items were deleted from the chart) 05/11 14:54 13:16 CORONAVIRUS ordered. EDMS EDMS
[2021-05-11 16:41] VITALS: BP 143/98; TEMP 97.5; O2SAT 100
== END 2021-05-11 16:37 | disposition home or self-care (01) ==
LOC: ER 12:21
DX: U07.1 COVID-19 (principal)
CPT/HCPCS: 0240U; 99281